=== PATIENT | female | born 1955 | race Caucasian/White ===

== ENCOUNTER 2023-04-05 11:26 | Emergency (ER) | payer OTHER ==
[~2023-04-05] VITALS: Ht 165.1 cm; Wt 61.2 kg
[2023-04-05 11:39] VITALS: BP 145/78; PULSE 104; RESP 15; TEMP 98.2; O2SAT 100
== END 2023-04-05 14:15 | disposition left against medical advice (07) ==
LOC: MED 11:26
DX: J34.0 Abscess, furuncle and carbuncle of nose (principal); H05.012 Cellulitis of left orbit; R21 Rash and other nonspecific skin eruption; Z88.0 Allergy status to penicillin; Z91.048 Other nonmedicinal substance allergy status
CPT/HCPCS: 99281